=== PATIENT | female | born 1945 | race Caucasian/White ===

== ENCOUNTER 2022-03-12 14:28 | Emergency (ER) | payer MEDICARE ==
[~2022-03-12] VITALS: Ht 167.6 cm; Wt 99.8 kg
[2022-03-12 17:04] LABS: Source, Urine Clean Catch
[2022-03-12] MEDS ORDERED: ATOR40TA PO (17:05)
[2022-03-12] MEDS ORDERED: OXYB5 PO (17:05)
[2022-03-12] MEDS ORDERED: BENAZEPRIL HCL40 M1 PO (17:05)
[2022-03-12] MEDS ORDERED: BISA5EC PO (17:06)
[2022-03-12] MEDS ORDERED: AMLO10 PO (17:06)
[2022-03-12] MEDS ORDERED: ESCI10 PO (17:06)
[2022-03-12 17:08] LABS: Appearance, Urine Hazy (Clear); Bilirubin, Urine Neg (Neg); Blood, Urine 1+ (Neg); Color, Urine Yellow (P-Yellow); Glucose Qualitative, Urine Neg (Neg); Ketones, Urine Neg (Neg); Leukocyte Esterase, Urine 3+ (Neg); Nitrite, Urine Neg (Neg); Protein, Urine 4+ (Neg); Urobilinogen, Urine NORM (Normal)
[2022-03-12 17:14] LABS: Granular Casts 0-2 /lpf (0)
[2022-03-12 17:15] LABS: Amorphous Light (0-Heavy); Bacteria Many /hpf; Renal Epithelial Few /hpf (0-Rare); Squamous Epithelial Cells Many /hpf (Few)
[2022-03-12] MEDS ORDERED: PENVK500 PO (18:02)
[2022-03-12] MEDS ORDERED: BACTRIM DS TAB1 EAC1 PO (18:02)
== END 2022-03-12 18:27 | disposition home or self-care (01) ==
LOC: ER 14:28
PROVIDERS: Physician Assistant
DX: K04.7 Periapical abscess without sinus (principal); N39.0 Urinary tract infection, site not specified; B35.6 Tinea cruris; I10 Essential (primary) hypertension
CPT/HCPCS: 81001; 87086; A9270